=== PATIENT | female | born 1990 | race Hispanic/Latino ===

== ENCOUNTER 2023-07-06 12:33 | Outpatient (CLI) | payer SELFPAY ==
[2023-07-06 14:16] LABS: Hematocrit 30.5 % (34.9-44.5); Mean Corpuscular HGB CONC 29.5 g/dL (32.0-36.0); Mean Corpuscular Hemoglobin 23.8 pg (27.0-33.0); Mean Corpuscular Volume 80.7 fl (81.6-98.3); Mean Platelet Volume 9.4 fl (7.4-10.4); Platelet Count 94 10x3/uL (150-450); RBC Distribution Width 17.4 % (11.5-14.5); Red Blood Cell (RBC) Count 3.78 10x6/uL (3.90-5.03); White Blood Cell (WBC) Count 10.4 10x3/uL (3.5-10.5)
[2023-07-06 14:21] LABS: INR-International Normal Ratio 0.9; PTT 22.7 sec (22.0-33.0)
== END 2023-07-06 12:34 | disposition home or self-care (01) ==
LOC: LABBT 12:33 → UNMERGE 12:33 → MERGE 12:33 → LABBT 12:34
PROVIDERS: ATTEND Neurological Surgery
DX: Z01.812 Encounter for preprocedural laboratory examination (principal); C71.4 Malignant neoplasm of occipital lobe
CPT/HCPCS: 85027; 85610; 85730

== ENCOUNTER 2023-07-21 07:47 | Outpatient (CLI) | payer BC | END 2023-07-21 07:48 | disposition home or self-care (01) | LOC: ULT 07:47 | PROVIDERS: ATTEND Internal Medicine Hematology & Oncology | DX: R18.8 Other ascites (principal); C50.919 Malignant neoplasm of unspecified site of unspecified female breast; J90 Pleural effusion, not elsewhere classified; N28.89 Other specified disorders of kidney and ureter; K82.8 Other specified diseases of gallbladder | CPT/HCPCS: 76700 ==

== ENCOUNTER 2023-07-26 08:44 | Inpatient (IN) | payer BC ==
[2023-07-26 09:19] LABS: Hematocrit 24.7 % (36.0-47.0); Hemoglobin 7.4 g/dL (12.0-16.0); Manual Diff?? YES; Mean Corpuscular Hemoglobin 24.2 pg (27.0-31.0); Mean Corpuscular Volume 80.7 fl (78.0-98.0); Mean Platelet Volume 9.5 fL (7.4-10.4); Platelet Count 122 10x3/uL (130-400); RBC Distribution Width 19.2 % (11.5-14.5); Red Blood Cell (RBC) Count 3.06 mill/uL (4.20-5.40); White Blood Cell (WBC) Count 8.9 10x3/uL (4.8-10.8)
[2023-07-26 09:24] LABS: Bacteria/HPF None Seen HPF (None Seen); Bilirubin Negative (Negative); Blood, Urine Negative (Negative); CAUTI Indications for Culture Alt mental st,lethar; Glucose, Urine (Dipstick) Normal (Negative); Ketone, Urine Negative (Negative); Leukocyte Negative Leu/uL (Negative); Nitrite Negative (Negative); Protein, Urine (Dipstick) 10 mg/dL (Neg-Trace); RBC/HPF 0-3 HPF (0-3); Squamous Epithelial 0-3 HPF (0-3); WBC/HPF 0-3 HPF (0-3); pH, Urine 8.5 (5.0-9.0)
[2023-07-26 09:25] LABS: Clarity Hazy (Clear)
[2023-07-26 09:27] LABS: Urine Culture Reflex No No
[2023-07-26 09:27] LABS: Delete Auto Diff?? YES
[2023-07-26 09:29] LABS: Amphetamine Not Detected (NotDetected); Barbiturates Screen Not Detected (NotDetected); Benzodiazepine Screen Not Detected (NotDetected); Cocaine Metabolite Screen Not Detected (NotDetected); Methadone Not Detected (NotDetected); Methamphetamine Not Detected (NotDetected); Opiate Screen Detected (NotDetected); Oxycodone Screen Not Detected (NotDetected); Phencyclidine (PCP) Not Detected (NotDetected); THC/Cannabinoid Screen Not Detected (NotDetected); Tricyclic Screen Not Detected (NotDetected)
[2023-07-26 09:31] LABS: Actual Bicarbonate (HCO3v) 23.1 mEq/L (22-28); Calcium, Ionized (venous) 1.02 mmol/L (1.16-1.32); Chloride (VBG) 108 mmol/L (98-106); Hematocrit-VBG 24 % (36.0-47.0); Hemoglobin (Hb) 8.1 g/dL (11.7-15.5); Potassium (VBG) 2.97 mmol/L (3.70-5.30); Sodium 140 mmol/L (133-146); pH (venous) 7.604 (7.32-7.43)
[2023-07-26 09:50] LABS: BHCG - Serum Negative (NEGATIVE); Pregs Control Background? CLEAR/WHITE (CLR/WHITE); Pregs Control Bar Appear? YES (CONTROL BAR)
[2023-07-26 09:54] LABS: Band 11 % (5-11); CellaVision Operator ID LAB.KW3; Lymphocytes 6 % (21-51); Monocytes 5 % (0-10); Neutrophil 78 % (42-75); Nucleated RBC (Manual Ct) 3 % (0); Platelet Adequacy Comment Platelets Decreased; RBC Morphology Within Normal Limits; Total Cell Count 102
[2023-07-26 10:02] LABS: Acetaminophen Less than 10 mcg/mL (10.0-30.0); Alcohol Less than 10.0 mg/dL (Less than 10); Lipase 61 U/L (8-78); Magnesium 2.1 mg/dL (1.6-2.6); Salicylate Less than 8.0 mg/dL (15.0-30.0)
[2023-07-26 10:03] LABS: Troponin I Less than 0.010 ng/mL (< 0.028)
[2023-07-26 10:03] LABS: Influenza A by NAA Not Detected (NotDetected); Influenza B by NAA Not Detected (NotDetected); SARS-CoV-2 NAA Rapid Test Not Detected (NotDetected)
[2023-07-26 10:23] LABS: ALT (SGPT) 59 U/L (8-55); AST (SGOT) 40 U/L (5-34); Albumin 2.5 g/dL (3.5-5.0); Alkaline Phosphatase 120 U/L (40-110); Anion Gap 10 mmol/L (10-20); BUN (Urea Nitrogen) 21 mg/dL (7.0-18.7); Bilirubin, Total 1.3 mg/dL (0.2-1.2); Calc. Creatinine Clearance 0 mL/min (70-130); Calcium 7.6 mg/dL (7.8-10.44); Carbon Dioxide 24 mmol/L (22-29); Chloride 111 mmol/L (98-107); Estimated GFR 126; Glucose 83 mg/dL (70-105); Potassium 3.1 mmol/L (3.5-5.1); Protein, Total 4.5 g/dL (6.0-8.3); Sodium 142 mmol/L (136-145)
[2023-07-26] MEDS ORDERED: Cefepime 2 GM VIAL ONE (11:19)
[2023-07-26] MEDS ORDERED: Sodium Chloride 0.9% 100 ML ONE (11:20)
[2023-07-26] MEDS ORDERED: Vancomycin 1 GM/200 ML (FROZEN) BAG ONE (12:49)
[2023-07-26] MEDS ORDERED: Ipratropium/Albuterol 3 ML NEB NEB PRN (13:02)
[2023-07-26] MEDS ORDERED: Labetalol HCl 100 MG/20 ML VIAL SLOW IVP PRN ×2 (13:08→13:51)
[2023-07-26] MEDS ORDERED: NS 0.9% w/ 40 MEQ KCL 1,000 ML IV SCH (13:15)
[2023-07-26] MEDS ORDERED: Mag-Al 1200 mg/1200 mg/30 ML UDCUP PO PRN (13:51)
[2023-07-26] MEDS ORDERED: Acetaminophen 325 MG TAB PO PRN (13:51)
[2023-07-26] MEDS: Albumin 25% 25 GM (100 mL) BOT IVPB SCH (15:18)
[2023-07-26] MEDS: HYDROmorphone 2 MG TAB PO SCH ×2 (15:43→16:10)
[2023-07-26] MEDS: NS 0.9% w/ 40 MEQ KCL 1,000 ML IV SCH (15:44)
[2023-07-26] MEDS: Morphine 4 MG/ML VIAL SLOW IVP PRN (15:54)
[2023-07-26 16:21] VITALS: BMI 24.5
[2023-07-26] MEDS: HYDROmorphone 2 MG TAB PO PRN (17:05)
[2023-07-26] MEDS: Ondansetron PF 4 MG/2 ML Vial IVP PRN (18:31)
[2023-07-26] MEDS: Pantoprazole 40 MG VIAL IVP SCH (20:20)
[2023-07-26] MEDS: levETIRAcetam 500 MG (5 mL) VIAL SLOW IVP SCH (20:20)
[2023-07-26] MEDS: Dexamethasone 4 mg/ml Vial SLOW IVP SCH (20:20)
[2023-07-26] MEDS: Docusate 100 MG CAP PO SCH (20:20)
[2023-07-26] MEDS ORDERED: Famotidine/PF 20 mg/2ml Vial SLOW IVP SCH (21:00)
[2023-07-26] MEDS: Gabapentin 400 MG CAP PO SCH ×2 (21:40→21:42)
[2023-07-26] MEDS ORDERED: NS 0.9% w/ 20 MEQ KCL 1,000 ML/1,000 ML BAG IV SCH (23:00)
[2023-07-27] MEDS: Morphine 4 MG/ML VIAL SLOW IVP PRN (04:18)
[2023-07-27 05:02] LABS: #Monocytes 0.4 thou/uL (0.11-0.59); #Neutrophils 4.5 thou/uL (1.40-6.50); %Basophils 0.2 % (0.0-1.0); %Monocytes 6.7 % (0.0-10.0); %Neutrophils 84.1 % (42.0-75.0); Hematocrit 22.2 % (36.0-47.0); Hemoglobin 6.4 g/dL (12.0-16.0); Mean Corpuscular HGB CONC 28.8 g/dL (32.0-36.0); Mean Corpuscular Hemoglobin 23.6 pg (27.0-31.0); Mean Corpuscular Volume 81.9 fl (78.0-98.0); Mean Platelet Volume 9.6 fL (7.4-10.4); RBC Distribution Width 19.7 % (11.5-14.5); Red Blood Cell (RBC) Count 2.71 mill/uL (4.20-5.40); White Blood Cell (WBC) Count 5.4 10x3/uL (4.8-10.8)
[2023-07-27 05:06] LABS: Platelet Count 89 10x3/uL (130-400)
[2023-07-27] MEDS ORDERED: Electrolyte Replacement Protocol FS PRN (07:07)
[2023-07-27] MEDS ORDERED: Lactated Ringer's 1,000 ML IV SCH (07:15)
[2023-07-27] MEDS: HYDROmorphone 2 MG TAB PO PRN ×2 (07:32→12:29)
[2023-07-27] MEDS: Potassium Chloride 20 MEQ TAB PO SCH (08:52)
[2023-07-27 09:20] LABS: Albumin 3.8 g/dL (3.5-5.0)
[2023-07-27 09:22] LABS: Chloride 119 mmol/L (98-107); Potassium 3.6 mmol/L (3.5-5.1)
[2023-07-27 09:23] LABS: Globulin 1.9 g/dL (2.4-3.5); Glucose 117 mg/dL (70-105)
[2023-07-27 09:25] LABS: Anion Gap 13 mmol/L (10-20); Bilirubin, Total 1.7 mg/dL (0.2-1.2); Carbon Dioxide 24 mmol/L (22-29)
[2023-07-27 09:26] LABS: Alkaline Phosphatase 73 U/L (40-110); Calc. Creatinine Clearance 141 mL/min (70-130); Estimated GFR 121; Phosphorus 3.4 mg/dL (2.3-4.7)
[2023-07-27] MEDS: levETIRAcetam 500 MG TAB PO SCH ×2 (09:26→20:41)
[2023-07-27] MEDS: Dexamethasone 4 MG TAB PO SCH ×2 (09:26→20:40)
[2023-07-27 09:27] LABS: BUN (Urea Nitrogen) 10 mg/dL (7.0-18.7)
[2023-07-27 09:28] LABS: AST (SGOT) 30 U/L (5-34); Critical Call Chemistry NUR.AG15@0927; Protein, Total 5.7 g/dL (6.0-8.3); Sodium 152 mmol/L (136-145)
[2023-07-27 09:29] LABS: ALT (SGPT) 47 U/L (8-55); Magnesium 2.4 mg/dL (1.6-2.6)
[2023-07-27 13:48] LABS: Hematocrit 28.1 % (36.0-47.0); Hemoglobin 8.4 g/dL (12.0-16.0)
[2023-07-27] MEDS: Dextrose 5% in Water 1,000 ML IV SCH (13:51)
[2023-07-27] MEDS: Dextrose 5% in Water 500 ML IV SCH (13:52)
[2023-07-27 20:28] LABS: Sodium 149 mmol/L (136-145)
[2023-07-28 04:59] LABS: #Monocytes 0.5 thou/uL (0.11-0.59); %Basophils 0.3 % (0.0-1.0); %Lymphocytes 4.6 % (21.0-51.0); %Monocytes 8.4 % (0.0-10.0); %Neutrophils 82.7 % (42.0-75.0); Hematocrit 26.9 % (36.0-47.0); Hemoglobin 8.1 g/dL (12.0-16.0); Mean Corpuscular HGB CONC 30.1 g/dL (32.0-36.0); Mean Corpuscular Hemoglobin 24.7 pg (27.0-31.0); Mean Platelet Volume 9.9 fL (7.4-10.4); RBC Distribution Width 18.6 % (11.5-14.5); Red Blood Cell (RBC) Count 3.28 mill/uL (4.20-5.40); White Blood Cell (WBC) Count 6.1 10x3/uL (4.8-10.8)
[2023-07-28 05:19] LABS: ALT (SGPT) 40 U/L (8-55); AST (SGOT) 24 U/L (5-34); Albumin 3.8 g/dL (3.5-5.0); Alkaline Phosphatase 85 U/L (40-110); Anion Gap 9 mmol/L (10-20); BUN (Urea Nitrogen) 8 mg/dL (7.0-18.7); Bilirubin, Total 1.3 mg/dL (0.2-1.2); Calc. Creatinine Clearance 143 mL/min (70-130); Calcium 8.7 mg/dL (7.8-10.44); Carbon Dioxide 28 mmol/L (22-29); Chloride 113 mmol/L (98-107); Estimated GFR 122; Globulin 1.9 g/dL (2.4-3.5); Glucose 150 mg/dL (70-105); Potassium 3.6 mmol/L (3.5-5.1); Protein, Total 5.7 g/dL (6.0-8.3); Sodium 146 mmol/L (136-145)
[2023-07-28 05:50] LABS: Platelet Count 91 10x3/uL (130-400)
[2023-07-28] MEDS: Sulfameth/Trimethoprim DS 800-160mg TAB PO SCH (08:15)
[2023-07-28 09:47] VITALS: TEMP 98.3
[2023-07-28 12:16] VITALS: BP 140/82
== END 2023-07-28 13:05 | disposition home or self-care (01) | DRG 82 ==
LOC: ERS 08:44 → CCU 13:03
PROVIDERS: ADMIT Internal Medicine; ATTEND Family Medicine
PROC: 30233J1 Transfusion of Nonautologous Serum Albumin into Peripheral Vein, Percutaneous Approach (ICD-10-PCS; 2023-07-26)
PROC: 4A00X4Z Measurement of Central Nervous Electrical Activity, External Approach (ICD-10-PCS; principal; 2023-07-27)
PROC: 30233N1 Transfusion of Nonautologous Red Blood Cells into Peripheral Vein, Percutaneous Approach (ICD-10-PCS; 2023-07-27)
DX: S06.6XAA Traumatic subarachnoid hemorrhage with loss of consciousness status unknown, initial encounter (principal); G93.41 Metabolic encephalopathy; E44.0 Moderate protein-calorie malnutrition; R18.8 Other ascites; C79.51 Secondary malignant neoplasm of bone; E87.0 Hyperosmolality and hypernatremia; C50.919 Malignant neoplasm of unspecified site of unspecified female breast; M79.7 Fibromyalgia; S06.1XAA Traumatic cerebral edema with loss of consciousness status unknown, initial encounter; D63.0 Anemia in neoplastic disease; E87.6 Hypokalemia; D69.6 Thrombocytopenia, unspecified; Z68.23 Body mass index [BMI] 23.0-23.9, adult; Z98.890 Other specified postprocedural states; Z79.899 Other long term (current) drug therapy; Z82.49 Family history of ischemic heart disease and other diseases of the circulatory system
CPT/HCPCS: 36415; 36416; 36430; 70450; 70496; 71260; 74177; 80053; 80306; 80307; 81001; 82140; 82805; 83605; 83690; 83735; 83880; 84100; 84443; 84484; 84703; 85025; 86850; 86900; 86901; 87040; 87086; 93005; 95816; 95819; 96365; 96366; 96367; C9113; J0692; J1100; J1953; J2270; J2405; J3370-JW; J3480; J3490; J7070; J8540; P9016; P9047

== ENCOUNTER 2023-08-20 14:21 | Inpatient (IN) | payer BC ==
[2023-08-20] MEDS ORDERED: Furosemide 40 MG (4 mL) VIAL ONE (15:02)
[2023-08-20] MEDS ORDERED: Lorazepam 0.5 MG TAB PO PRN (15:17)
[2023-08-20] MEDS ORDERED: Senokot S 8.6-50 MG TAB PO PRN (15:19)
[2023-08-20] MEDS ORDERED: Calcium Carbonate 500 MG ChewTAB PO PRN (15:19)
[2023-08-20] MEDS ORDERED: Acetaminophen 325 MG TAB PO PRN (15:19)
[2023-08-20] MEDS ORDERED: Ondansetron PF 4 MG/2 ML Vial IVP PRN (15:19)
[2023-08-20] MEDS ORDERED: Bisacodyl 5 MG TAB PO PRN (15:19)
[2023-08-20] MEDS ORDERED: Zolpidem Tartrate 5 MG TAB PO PRN (15:19)
[2023-08-20 15:39] LABS: Hematocrit 20.5 % (36.0-47.0); Mean Corpuscular HGB CONC 29.3 g/dL (32.0-36.0); Mean Corpuscular Hemoglobin 25.1 pg (27.0-31.0); Mean Corpuscular Volume 85.8 fl (78.0-98.0); Mean Platelet Volume 10.8 fL (7.4-10.4); Platelet Count 88 10x3/uL (130-400); RBC Distribution Width 21.4 % (11.5-14.5); Red Blood Cell (RBC) Count 2.39 mill/uL (4.20-5.40)
[2023-08-20 15:49] LABS: ALT (SGPT) 39 U/L (8-55); AST (SGOT) 37 U/L (5-34); Albumin 2.5 g/dL (3.5-5.0); Alkaline Phosphatase 123 U/L (40-110); Anion Gap 7 mmol/L (10-20); BUN (Urea Nitrogen) 12 mg/dL (7.0-18.7); Bilirubin, Total 1.2 mg/dL (0.2-1.2); Calc. Creatinine Clearance 0 mL/min (70-130); Calcium 7.2 mg/dL (7.8-10.44); Carbon Dioxide 24 mmol/L (22-29); Chloride 112 mmol/L (98-107); Estimated GFR 125; Glucose 141 mg/dL (70-105); Magnesium 1.7 mg/dL (1.6-2.6); Potassium 2.9 mmol/L (3.5-5.1); Protein, Total 4.5 g/dL (6.0-8.3); Sodium 140 mmol/L (136-145)
[2023-08-20 16:06] LABS: Bacteria/HPF None Seen HPF (None Seen); Bilirubin Negative (Negative); Blood, Urine Negative (Negative); CAUTI Indications for Culture Alt mental st,lethar; Clarity Clear (Clear); Glucose, Urine (Dipstick) Normal (Negative); Ketone, Urine Negative (Negative); Leukocyte Negative Leu/uL (Negative); Nitrite Negative (Negative); Protein, Urine (Dipstick) Negative (Neg-Trace); RBC/HPF 0-3 HPF (0-3); Specific Gravity, Urine 1.007 (1.002-1.036); Squamous Epithelial 0-3 HPF (0-3); WBC/HPF 0-3 HPF (0-3); pH, Urine 6.5 (5.0-9.0)
[2023-08-20 16:07] LABS: Urine Culture Reflex No No
[2023-08-20] MEDS ORDERED: Magnesium 2 GM/50 ML BAG (IN WATER) ONE (16:09)
[2023-08-20] MEDS ORDERED: Potassium Chloride 20 MEQ TAB ONE (16:09)
[2023-08-20] MEDS ORDERED: Potassium Chloride 20 MEQ (100 mL) BAG ONE (16:10)
[2023-08-20 16:13] LABS: Anisocytosis SLIGHT = 6-15 cells HPF (0-5); Band 5 % (5-11); Large Platelets 5.9 % (0-5); Lymphocytes 3 % (21-51); Monocytes 8 % (0-10); Myelocyte 1 % (0-0); Neutrophil 83 % (42-75); Nucleated RBC (Manual Ct) 4 % (0); Platelet Adequacy Comment Platelets Decreased; Polychromasia SLIGHT = 2-3 cells HPF (0-2)
[2023-08-20 17:26] LABS: Troponin I 0.017 ng/mL (< 0.028)
[2023-08-20 17:45] LABS: Iron 23 ug/dL (50-170); Iron Binding Capacity, Total 309 mcg/dL (265-497)
[2023-08-20] MEDS: levETIRAcetam 500 MG TAB PO SCH (22:03)
[2023-08-20] MEDS: Gabapentin 400 MG CAP PO SCH (22:03)
[2023-08-20] MEDS: Potassium Chloride 20 MEQ TAB PO SCH (22:03)
[2023-08-20] MEDS: Furosemide 20 MG (2 mL) VIAL SLOW IVP SCH (22:19)
[2023-08-20 23:18] LABS: Hematocrit 27.2 % (36.0-47.0); Hemoglobin 8.3 g/dL (12.0-16.0)
[2023-08-21] MEDS: Albumin 25% 25 GM (100 mL) BOT IVPB SCH (00:52)
[2023-08-21 01:05] LABS: Troponin I Less than 0.010 ng/mL (< 0.028)
[2023-08-21] MEDS: HYDROmorphone 2 MG TAB PO PRN (04:35)
[2023-08-21] MEDS: Furosemide 40 MG (4 mL) VIAL SLOW IVP SCH (05:27)
[2023-08-21 05:39] LABS: Hematocrit 24.1 % (36.0-47.0); Hemoglobin 7.2 g/dL (12.0-16.0); Mean Corpuscular HGB CONC 29.9 g/dL (32.0-36.0); Mean Corpuscular Hemoglobin 25.5 pg (27.0-31.0); Mean Corpuscular Volume 85.5 fL (78.0-98.0); Mean Platelet Volume 9.9 fL (7.4-10.4); Platelet Count 102 10x3/uL (130-400); RBC Distribution Width 20.2 % (11.5-14.5); Red Blood Cell (RBC) Count 2.82 mill/uL (4.20-5.40)
[2023-08-21 06:01] LABS: ALT (SGPT) 38 U/L (8-55); AST (SGOT) 36 U/L (5-34); Alkaline Phosphatase 117 U/L (40-110); Anion Gap 8 mmol/L (10-20); BUN (Urea Nitrogen) 13 mg/dL (7.0-18.7); Bilirubin, Total 1.5 mg/dL (0.2-1.2); Calc. Creatinine Clearance 181 mL/min (70-130); Carbon Dioxide 29 mmol/L (22-29); Chloride 110 mmol/L (98-107); Estimated GFR 123; Globulin 1.9 g/dL (2.4-3.5); Glucose 92 mg/dL (70-105); Magnesium 2.2 mg/dL (1.6-2.6); Potassium 3.8 mmol/L (3.5-5.1); Protein, Total 4.9 g/dL (6.0-8.3); Sodium 143 mmol/L (136-145)
[2023-08-21 06:11] LABS: Anisocytosis SLIGHT = 6-15 cells HPF (0-5); Band 3 % (5-11); Eosinophils 1 % (0-10); Hypochromia SLIGHT = 6-15 cells HPF (0-5); Lymphocytes 15 % (21-51); Monocytes 6 % (0-10); Neutrophil 76 % (42-75); Nucleated RBC (Manual Ct) 2 % (0); Platelet Adequacy Comment Platelets Decreased; Polychromasia SLIGHT = 2-3 cells HPF (0-2); Smudge Cells 30.1 %
[2023-08-21 14:02] VITALS: BMI 18.4
[2023-08-22 05:15] LABS: Hematocrit 27.9 % (36.0-47.0); Hemoglobin 8.6 g/dL (12.0-16.0); Mean Corpuscular HGB CONC 30.8 g/dL (32.0-36.0); Mean Corpuscular Volume 84.3 fL (78.0-98.0); Mean Platelet Volume 9.8 fL (7.4-10.4); Platelet Count 97 10x3/uL (130-400); RBC Distribution Width 20.6 % (11.5-14.5); Red Blood Cell (RBC) Count 3.31 mill/uL (4.20-5.40)
[2023-08-22 05:33] LABS: ALT (SGPT) 37 U/L (8-55); AST (SGOT) 34 U/L (5-34); Albumin 3.2 g/dL (3.5-5.0); Alkaline Phosphatase 109 U/L (40-110); Anion Gap 9 mmol/L (10-20); BUN (Urea Nitrogen) 14 mg/dL (7.0-18.7); Bilirubin, Total 1.8 mg/dL (0.2-1.2); Calc. Creatinine Clearance 164 mL/min (70-130); Calcium 8.7 mg/dL (7.8-10.44); Carbon Dioxide 28 mmol/L (22-29); Chloride 110 mmol/L (98-107); Estimated GFR 122; Glucose 86 mg/dL (70-105); Phosphorus 3.2 mg/dL (2.3-4.7); Potassium 3.5 mmol/L (3.5-5.1); Protein, Total 5.2 g/dL (6.0-8.3); Sodium 143 mmol/L (136-145)
[2023-08-22 05:56] LABS: Band 3 % (5-11); Eosinophils 1 % (0-10); Hypochromia SLIGHT = 6-15 cells HPF (0-5); Lymphocytes 21 % (21-51); Metamyelocyte 1 % (0-0); Monocytes 6 % (0-10); Neutrophil 66 % (42-75); Nucleated RBC (Manual Ct) 6 % (0); Platelet Adequacy Comment Platelets Decreased; Polychromasia SLIGHT = 2-3 cells HPF (0-2)
[2023-08-22 08:38] VITALS: BP 124/80; TEMP 98.3
[2023-08-23] MEDS ORDERED: Sulfameth/Trimethoprim SS 400-80MG TAB PO SCH (09:00)
[2023-08-23] MEDS ORDERED: FLU VACC QS2023-24(6MOS UP)/PF 60 MCG/0.5 ML SYRINGE IM ONE (18:15)
== END 2023-08-22 13:00 | disposition home or self-care (01) | DRG 641 ==
LOC: SUATTDRO 14:21 → ERS 14:21 → MSONC 15:17
PROVIDERS: ADMIT Internal Medicine; ATTEND Family Medicine
PROC: 6A550Z2 Pheresis of Platelets, Single (ICD-10-PCS; principal; 2023-08-20)
PROC: 30233N1 Transfusion of Nonautologous Red Blood Cells into Peripheral Vein, Percutaneous Approach (ICD-10-PCS; 2023-08-20)
DX: E87.70 Fluid overload, unspecified (principal); E46 Unspecified protein-calorie malnutrition; C79.31 Secondary malignant neoplasm of brain; C78.7 Secondary malignant neoplasm of liver and intrahepatic bile duct; J90 Pleural effusion, not elsewhere classified; J98.11 Atelectasis; E87.6 Hypokalemia; D64.9 Anemia, unspecified; D69.6 Thrombocytopenia, unspecified; E87.8 Other disorders of electrolyte and fluid balance, not elsewhere classified; C50.919 Malignant neoplasm of unspecified site of unspecified female breast; F41.9 Anxiety disorder, unspecified; Z79.899 Other long term (current) drug therapy; Z68.27 Body mass index [BMI] 27.0-27.9, adult; Z98.890 Other specified postprocedural states; Z90.11 Acquired absence of right breast and nipple
CPT/HCPCS: 36416; 36430; 71045; 76705; 80053; 81001; 82607; 83540; 83550; 83735; 83880; 84100; 84484; 85025; 86850; 86900; 86901; 93005; J1642; J1940; J3475; J3480; P9016; P9035; P9047

== ENCOUNTER 2024-05-25 12:59 | Outpatient (CLI) | payer BC, OTHER | END 2024-05-25 13:00 | disposition home or self-care (01) | LOC: MRI 12:59 | PROVIDERS: ATTEND Radiology Radiation Oncology | DX: C79.31 Secondary malignant neoplasm of brain (principal); C80.1 Malignant (primary) neoplasm, unspecified; G93.89 Other specified disorders of brain | CPT/HCPCS: 70553; 76376 ==

== ENCOUNTER → 2024-05-29 | Outpatient (CLI) | payer BC, OTHER | LOC: PET 11:45 | PROVIDERS: ATTEND Internal Medicine Hematology & Oncology | DX: C50.511 Malignant neoplasm of lower-outer quadrant of right female breast (principal); C79.51 Secondary malignant neoplasm of bone; C79.31 Secondary malignant neoplasm of brain; C78.7 Secondary malignant neoplasm of liver and intrahepatic bile duct | CPT/HCPCS: 78815; A9552 ==

== ENCOUNTER 2025-03-12 09:03 | Outpatient (CLI) | payer MEDICARE | END 2025-03-12 09:04 | disposition home or self-care (01) | LOC: SCSMRI 09:03 | PROVIDERS: ATTEND Radiology Radiation Oncology | DX: C79.31 Secondary malignant neoplasm of brain (principal); C80.1 Malignant (primary) neoplasm, unspecified; Z98.890 Other specified postprocedural states | CPT/HCPCS: 70553; 76376 ==

== ENCOUNTER 2025-05-29 11:45 | Outpatient (CLI) | payer MEDICARE | END 2025-05-29 11:46 | disposition home or self-care (01) | LOC: PET 11:45 | PROVIDERS: ATTEND Internal Medicine Hematology & Oncology | DX: C50.511 Malignant neoplasm of lower-outer quadrant of right female breast (principal); E83.52 Hypercalcemia; D35.2 Benign neoplasm of pituitary gland | CPT/HCPCS: 78815; A9552 ==